=== PATIENT | female | born 1985 | race African-American/Black ===

== ENCOUNTER 2017-05-24 22:31 | Emergency (ER) | payer MEDICAID ==
[~2017-05-24] VITALS: Ht 160 cm; Wt 99.3 kg
[2017-05-24 23:12] VITALS: BP 145/83
[2017-05-24] MEDS ORDERED: IBUPROFEN 600MG TABLET PO ONE (23:15)
== END 2017-05-24 23:22 | disposition home or self-care (01) ==
LOC: ER 22:32
DX: J02.8 Acute pharyngitis due to other specified organisms (principal); B97.89 Other viral agents as the cause of diseases classified elsewhere
CPT/HCPCS: 81025; 99282

== ENCOUNTER 2017-06-05 20:48 | Emergency (ER) | payer MEDICAID ==
[~2017-06-05] VITALS: Ht 160 cm; Wt 96.0 kg
[2017-06-05] MEDS ORDERED: ONDANSETRON HCL 4MG/2ML VIAL IV STA (23:02)
[2017-06-05] MEDS ORDERED: SODIUM CHLORIDE 0.9% 1,000 ML IV ONE (23:02)
[2017-06-05] MEDS ORDERED: HYDROCODONE/APAP 7.5/325MG 1 TAB TABLET PO ONE (23:30)
[2017-06-05 23:49] LABS: HEMATOCRIT. 37.7 % (36.0-48.0); HEMOGLOBIN. 12.7 g/dL (12.0-16.0); MEAN CORPUSCULAR HEMOGLOBIN 31.6 pg (28.0-32.0); MEAN CORPUSCULAR VOLUME 93.9 fL (81.0-99.0); MEAN PLATELET VOLUME 10.4 fl (7.4-10.4); PLATELET 178 x1000/uL (130-400); RED BLOOD CELL COUNT 4.02 mill/uL (4.2-5.4); RED CELL DISTRIBUTION WIDTH 14.2 % (11.6-14.6)
[2017-06-05 23:56] LABS: INR 1.1; PROTHROMBIN TIME 11.5 sec (9.4-11.6)
[2017-06-06] LABS: CLARITY URINE TURBID (CLEAR); COLOR URINE YELLOW (YELLOW); GLUCOSE URINE NEGATIVE (NEGATIVE); KETONES URINE TRACE (NEGATIVE); LEUKOCYTE ESTERASE URINE 3+ (NEGATIVE); NITRITE URINE POSITIVE (NEGATIVE); OCCULT BLOOD URINE TRACE (NEGATIVE); PH URINE 5.5 (4.5-8.0); PROTEIN URINE 1+ (NEGATIVE); SPECIFIC GRAVITY URINE 1.018 (1.005-1.030)
[2017-06-06 00:23] LABS: CHLORIDE 105 mEq/L (98-107)
[2017-06-06 00:33] LABS: CARBON DIOXIDE 25 mEq/L (21-32)
[2017-06-06 01:20] LABS: PLATELET ESTIMATE NORMAL
[2017-06-06] MEDS ORDERED: IOHEXOL-300 100 ML BOTTLE ONE (02:11)
[2017-06-06] MEDS ORDERED: CEFTRIAXONE 1 G PREMIX 50 ML IV ONE (03:15)
[2017-06-06] MEDS ORDERED: ONDANSETRON HCL 4MG/2ML VIAL IV STA (03:15)
[2017-06-06] MEDS ORDERED: MORPHINE SULFATE 2 MG/ML CPJ (NOT FOR IM USE) IV ONE (03:15)
[2017-06-06 05:10] VITALS: BP 121/67
== END 2017-06-06 05:38 | disposition home or self-care (01) ==
LOC: ER 20:48
DX: N12 Tubulo-interstitial nephritis, not specified as acute or chronic (principal); D18.03 Hemangioma of intra-abdominal structures
CPT/HCPCS: 36415; 74177; 80053; 81001; 81025; 83690; 85025; 85610; 96361; 96365; 96366; 96375; 96376; 99285; J0696; J2270; J2405; Q9967; Z7610; 81003; J7030